=== PATIENT | male | born 1985 | race American Indian/Alaskan Native ===

== ENCOUNTER 2017-05-20 09:02 | Emergency (ER) | payer SELFPAY ==
[2017-05-20] MEDS ORDERED: FIORICET PO ONE (13:26)
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
[2017-05-20] MEDS ORDERED: ROBAXIN PO SCH (14:00)
[2017-05-20 14:35] VITALS: BP 126/70
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
== END 2017-05-20 14:33 | disposition home or self-care (01) ==
LOC: ED 09:02
DX: Z53.21 Procedure and treatment not carried out due to patient leaving prior to being seen by health care provider (principal)

== ENCOUNTER 2017-05-20 18:36 | Emergency (ER) | payer OTHER ==
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
[2017-05-20] MEDS ORDERED: NORCO 5/325 PO ONE (21:12)
[2017-05-20 21:22] VITALS: BP 120/63
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
== END 2017-05-20 21:40 | disposition home or self-care (01) ==
LOC: ED 18:36
DX: M79.1 Myalgia (principal); M54.5 Low back pain; M54.2 Cervicalgia; V49.49XA Driver injured in collision with other motor vehicles in traffic accident, initial encounter; Y93.9 Activity, unspecified; Y92.9 Unspecified place or not applicable; Y99.9 Unspecified external cause status
CPT/HCPCS: 70450; 72125; 72131